=== PATIENT | male | born 1945 | race Caucasian/White ===

== ENCOUNTER 2018-01-19 08:55 | Day surgery (SDC) | payer OTHER ==
[2018-01-11 12:30] VITALS: BMI 33.5
--- NOTE | 2018-01-19 07:58 | HP ---
Satellite [facility] - Chief Complaint Chief Complaint: left knee pain - Past Medical History Allergies/Adverse Reactions: Allergies Allergy/AdvReac Type Severity Reaction Status Date / Time doxycycline Allergy Intermediate Rash Verified 01/07/18 16:33 NSAIDS (Non-Steroidal AdvReac REPORTS HE Verified 01/07/18 17:03 Anti-Inflamma TAKES ALTACE IS UNABLE TO TAKE TOGETHER NUTS AdvReac PT REPORTS Uncoded 01/07/18 17:03 HE IS UNABLE TO EAT DUE TO DX OF DIVERTICULOSIS SEEDS AdvReac PT REPORTS Uncoded 01/07/18 17:03 HE IS UNABLE TO EAT DUE TO A DX OF DIVERTICULOSIS - Current Medications Current Medications: Home Medications Medication Instructions Recorded Ascorbate Calcium [Vitamin C] 500 mg PO DAILY 07/05/14 Atorvastatin Ca [Lipitor] 10 mg PO HS 07/05/14 Docosahexanoic Acid/Epa [Fish Oil 1 each PO DAILY 07/05/14 Softgel] Metoprolol Succinate [Toprol XL -] 25 mg PO DAILY 07/05/14 Multivitamins [Multivit ([facility] 1 tab PO DAILY 07/05/14 Formulary)] Ramipril 10 mg PO DAILY 07/05/14 Aspirin [Aspirin EC] 81 mg PO DAILY 01/07/18 Metformin HCl [Glucophage] 500 mg PO BID 01/07/18 Satellite Physical Exam - Physical Examination General Appearance: Well Nourished, Well Developed, Alert & Oriented x3 ENT: Clear Lung: Normal air movement Heart: Regular rate & rhythm Extremities: Other (left knee- + swelling, + ttp medially, decr rom, nvi xrays show grade 4 medial djd) Neurological: Intact, Alert, Oriented Satellite Impression/Plan - Impression/Plan Impression: left knee medial djd Operative Procedure: left medial wendy ukr Date to be Performed: 01/19/18
[~2018-01-19 08:55] MED LIST: CEFAZOLIN 2 GM in DEXTROSE 5%-WATER - 50 ML IVPB ONE; GABAPENTIN 300 MG CAPSULE (FP) PO ONE; ROPIVICAINE 0.2%/MORPH PF/KETOROLAC - 51ML DISP.SYRINGE IA ONE; TRANEXAMIC ACID 1000 MG/10 ML VIAL IVPUSH ONE; oxyCODONE HCL 10 MG SUSTAINED ACTING TABLET PO ONE
[2018-01-19] MEDS ORDERED: MIDAZOLAM HCL 2 MG/2 ML SINGLE DOSE VIAL ONE ×2 (08:56)
[2018-01-19] MEDS ORDERED: PROPOFOL 20 ML ONE ×2 (09:02→11:58)
[2018-01-19] MEDS ORDERED: BUPIVACAINE LIPOSOME/PF (EXPAREL) 266 MG/20 ML VIAL ONE (10:12)
[2018-01-19] MEDS ORDERED: ceFAZolin SODIUM 1 GM VIAL ONE ×2 (10:48→11:26)
[2018-01-19] MEDS ORDERED: THROMBIN (BOVINE) 5,000 UNIT VIAL TP ONE (10:48)
[2018-01-19] MEDS ORDERED: GELATIN, ABSORBABLE 100 EACH SPONGE TP ONE (10:48)
[2018-01-19] MEDS ORDERED: oxyCODONE HCL 5 MG TABLET PO PRN ×2 (11:05)
[2018-01-19] MEDS ORDERED: ONDANSETRON 4 MG/2 ML VIAL IVPUSH PRN ×2 (11:05→13:02)
[2018-01-19] MEDS ORDERED: ACETAMINOPHEN 325 MG TABLET (FP) PO SCH (11:15)
[2018-01-19] MEDS ORDERED: LACTATED RINGERS SOLUTION 1,000 ML IV SCH ×2 (11:15→13:15)
[2018-01-19] MEDS ORDERED: MAG HYDROX/AL HYDROX/SIMETH 30 ML UNIT-DOSE CUP PO PRN (13:02)
--- NOTE | 2018-01-19 13:04 | OP ---
Operative Note - Note: Operative Date: 01/19/18 (marty) Pre-Operative Diagnosis: left knee medial djd Operation: left medial wendy ukr Post-Operative Diagnosis: Same as Pre-op Surgeon: Héctor Hair Carton Counter Feeder: Amado Bowen Anesthesiologist/LUMP MACHINE OPERATOR: Roberth Jackson Anesthesia: Spinal, Local Specimens Removed: bone fragments Estimated Blood Loss (mls): 100 Operative Report Dictated: Yes
[2018-01-19] MEDS ORDERED: INSULIN (NOVOLOG) ASPART 100 UNITS/ML 10ML VIAL ONE ×2 (17:13→21:54)
[2018-01-19] MEDS: metFORMIN HCL 500 MG TABLET (FP) PO SCH (17:22)
[2018-01-19] MEDS: INSULIN SLIDING SCALE (NOVOLOG) 1 VIAL SQ SCH ×2 (17:22→22:00)
[2018-01-19] MEDS: ACETAMINOPHEN 325 MG TABLET (FP) PO SCH ×2 (19:59→20:01)
[2018-01-19] MEDS: CEFAZOLIN 2 GM/D5W 2 GM/50 ML ML IVPB SCH (19:59)
--- NOTE | 2018-01-19 20:07 | SPEC ---
DATE OF OPERATION: 01/19/2018 PREOPERATIVE DIAGNOSIS: Degenerative joint disease, left knee. POSTOPERATIVE DIAGNOSIS: Degenerative joint disease, left knee. PROCEDURE: Left medial unicompartmental knee replacement with robotic-assisted navigation (MAKOplasty) and patelloplasty. SURGICAL ATTENDING: Héctor Hair MD MOTOR TRANSPORT INSPECTOR: SUZANNE Watkins ANESTHESIA: Regional and spinal. CLOSURE: Medial BRAEDEN components with a 3 femur, 3 tibia, and an 8-mm polyethylene; No. 1 Vicryl, fascia; 0 and 2-0 for subcutaneous; 3-0 Monocryl subcuticular with skin glue; 4-0 undyed Vicryl for pin sites. ESTIMATED BLOOD LOSS: Negligible. TOURNIQUET TIME: Approximately 25 minutes. COMPLICATIONS: None. CONDITION: To recovery in stable condition. DESCRIPTION OF OPERATIVE PROCEDURE: Patient was taken to the operating room on January 19, 2018. Spinal and regional anesthesia was administered by the anesthesiologist. IV Kefzol and TXA were administered prophylactically prior to the case. A well-padded pneumatic tourniquet was placed on the left proximal thigh. The left lower extremity was prepped and draped in the usual sterile fashion. A 6- to 8-cm longitudinal incision over the medial side of the patella from mid patella to the tibial tubercle was incised and was deepened using Bovie cautery. An arthrotomy was then made just medial to the patellar tendon and the patella. Subperiosteal dissection was done on the anteromedial proximal tibia all the way back to the MCL. Partial fat pad excision was performed, exposing the medial compartment. Checkpoint was malleable at both the femur and the tibia. Using 2 stab incisions in the femur 1 handbreadth above the patella on the femur and 2 stab incisions 1 handbreadth below the tibial tubercle on the tibia, 2 threaded pins were drilled in parallel fashion from anterior to posterior, going through the proximal cortex and engaging the 2nd but not through the 2nd cortex. To these threaded pins were fastened navigation rays, 1 on the femur and 1 on the tibia. The knee was then registered with the navigation device with the center of the rotation of the hip, medial and lateral malleoli, and multiple points both on the femur and on the tibia. Excellent registration of less than 0.5 mm was obtained on both to ensure adequate registration. The navigation device ensured us to "pop the bubbles" both on the femur and the tibia and that was performed and passed registration. The knee was then thoroughly inspected to remove all osteophytes both on the femur and the tibia. Also, osteophytes on the trochlea and on the surface of the patella were removed as well. The knee was then stressed with valgus stress at 0, 30, 60, 90, and 120 degrees of flexion. This propagated a looseness/tightness graft. The virtual positions of the components were then optimized to ensure an excellent graft. The tracking also was optimized by manipulating the virtual position to ensure that the femoral component articulated with the central portion of the tibial component. The robot was then brought into the field and was registered. The robot was used to bur the bone on both the femur and the tibia as to the specifications of the components. The trial components were then applied on both the femur and the tibia with an appropriate polyethylene insert. The knee was taken through a range of motion and found to have full extension, full flexion, with excellent stability. Stressing the graft revealed an excellent looseness/tightness graft with the trial components in place. The trial components were removed. The knee was thoroughly irrigated with a copious amount of antibiotic irrigation. The real components were then cemented in using modern generation cement techniques with antibiotic cement and pressurization. After the cement was hardened, the knee was thoroughly inspected to remove out all excess cement. The real polyethylene insert was then clipped into place. Range of motion and stability were again assessed to be as they were with the trials. At this time, the pins and the checkpoints were removed. The knee was again thoroughly irrigated. The arthrotomy was closed with No. 1 Vicryl, 0 and 2-0 subcutaneous, and 3-0 Monocryl subcuticular with skin glue for the skin, 4-0 undyed Vicryl for the pin sites. Sterile pressure dressing was placed over the knee. Patient awakened from anesthesia and transferred to recovery in stable condition. No complications. Estimated blood loss negligible. X-rays postoperatively revealed excellent position of the components. Landy [id number]
[2018-01-19] MEDS: SENNOSIDES/DOCUSATE COMBO (SENNA PLUS) TABLET (UD) PO SCH (21:59)
[2018-01-19] MEDS: oxyCODONE HCL 10 MG SUSTAINED ACTING TABLET PO SCH (21:59)
[2018-01-19] MEDS ORDERED: ATORVASTATIN CA 10 MG TABLET (FP) PO SCH (22:00)
[2018-01-20] MEDS: ACETAMINOPHEN 325 MG TABLET (FP) PO SCH ×2 (01:47→01:49)
[2018-01-20] MEDS: CEFAZOLIN 2 GM/D5W 2 GM/50 ML ML IVPB SCH (03:40)
[2018-01-20] MEDS: metFORMIN HCL 500 MG TABLET (FP) PO SCH ×2 (06:37→10:01)
[2018-01-20] MEDS ORDERED: ASPIRIN 325 MG TABLET PO SCH (08:00)
[2018-01-20] MEDS ORDERED: PATIENT'S OWN MEDICATION (NON-FORMULARY) (Ramipril [Ramipril] 10 MG) PO SCH (10:00)
[2018-01-20] MEDS ORDERED: PANTOPRAZOLE 40 MG TABLET (FP) PO SCH (10:00)
[2018-01-20] MEDS: oxyCODONE HCL 10 MG SUSTAINED ACTING TABLET PO SCH (10:00)
[2018-01-20] MEDS ORDERED: metoPROLOL SUCCINATE 25 MG TAB.SR.24H (FP) PO SCH (10:00)
[2018-01-20] MEDS ORDERED: MULTIVITAMINS (DAILY MVI) TABLET (FP) PO SCH ×2 (10:00)
[2018-01-20] MEDS ORDERED: RAMIPRIL 5 MG CAPSULE (FP) PO SCH (10:00)
[2018-01-20] MEDS: SENNOSIDES/DOCUSATE COMBO (SENNA PLUS) TABLET (UD) PO SCH (10:01)
--- NOTE | 2018-01-20 10:24 | PN ---
Progress Note (short form) - Note Progress Note: Ortho Pt seen and examined s/p left medial wendy ukr pod #1 Selected Entries 01/20/18 06:00 Temperature 98.9 F Pulse Rate 80 Respiratory 20 Rate Blood Pressure 142/72 dressing c/d/i, calf soft, nt rom 0-70, nvi a/p PT dvt ppx pain control d/c home today f/u in 1 week
--- NOTE | 2018-01-20 10:25 | DS ---
Physical Examination Vital Signs: Vital Signs Temperature 98.9 F 01/20/18 06:00 Pulse Rate 80 01/20/18 06:00 Respiratory Rate 20 01/20/18 06:00 Blood Pressure 142/72 01/20/18 06:00 O2 Sat by Pulse Oximetry (%) 96 01/20/18 07:05 Discharge Summary Reason For Visit: OSTEOARTHRITIS Procedures: Principal: left medial wendy ukr Hospital Course: admitted for elective left medial wendy ukr, uneventful post-op, stable for d/c Condition: Good - Instructions Diet, Activity, Other Instructions: Post-op Instructions-Partial Knee Replacement Call the office for a follow-up appointment in 1 week - [phone] Aspirin 325mg daily for 6 weeks. Pain medication was sent into your pharmacy. Apply Graduated Compression Stockings (TEDs) to both lower extremities- remove daily for hygiene ONLY Apply Sequential Compression Device (SCDs) to both Lower extremities remove for PT and hygiene ONLY Apply cold packs to affected area for 15 minutes every 2 hours. Physical Therapist will come to your home for the first 5 days. You will be set up with outpatient PT at your first post-operative visit. Patient may ambulate as tolerated-encourage self care (at least every 2-3 hours while awake) with walker or cane Maintain Aquacel (waterproof) dressing to operative wound (will be removed by surgeon at first office visit) Shower with Aquacel dressing in place-if Aquacel integrity compromised, remove and apply dry sterile dressing and notify Orthopedist. DO NOT SHOWER unless Orthopedists approves without Aquacel dressing CONTACT THE OFFICE FOR ANY CHANGE IN YOUR CONDITION (for example-fever greater than 102 degrees, excessive bleeding from operative site, purulent drainage, severe swelling or pain) GO TO THE EMERGENCY ROOM IF THERE IS A MEDICAL EMERGENCY Knee Precautions: * Keep a rolled towel under affected heel while in bed or chair (to keep knee in extension) * Keep affected leg elevated except during mealtimes * DO NOT PLACE PILLOW UNDER AFFECTED KNEE * If you have any questions, please do not hesitate to call the office - . Referrals: Héctor Hair MD [Staff Physician] - Disposition: VNS/HOME HEALTH CARE - Home Medications Comprehensive Discharge Medication List: Ambulatory Orders Ascorbate Calcium [Vitamin C] 500 mg PO DAILY 07/05/14 Atorvastatin Ca [Lipitor] 10 mg PO HS 07/05/14 Docosahexanoic Acid/Epa [Fish Oil Softgel] 1 each PO DAILY 07/05/14 Metoprolol Succinate [Toprol XL -] 25 mg PO DAILY 07/05/14 Multivitamins [Multivit ([facility] Formulary)] 1 tab PO DAILY 07/05/14 Ramipril 10 mg PO DAILY 07/05/14 Metformin HCl [Glucophage] 500 mg PO BID 01/07/18 Aspirin [ASA -] 325 mg PO DAILY@0800 tablet 01/19/18 Oxycodone HCl/Acetaminophen [Percocet 5-325 mg Tablet -] 1 - 2 tab PO Q6H #50 tab MDD 8 01/19/18
[2018-01-20 11:54] VITALS: BP 138/62; PULSE 75; TEMP 98.6
--- NOTE | 2018-01-20 11:56 | PN ---
Progress Note (short form) - Note Progress Note: ANESTHESIA POSTOP 72 yo male POD#1 L medial knee replacement Patient doing well. Sitting in chair. Tolerating PO. Actively participating in PT VSS, Afebrile Encouraged IS and active participation in PT
== END 2018-01-20 12:42 | disposition home health service (06) ==
LOC: FM/S 08:55 → FASU 08:55
PROVIDERS: ATTEND Orthopaedic Surgery
PROC: 8E0YXBZ Computer Assisted Procedure of Lower Extremity (ICD-10-PCS; 2018-01-19)
PROC: 8E0Y0CZ Robotic Assisted Procedure of Lower Extremity, Open Approach (ICD-10-PCS; 2018-01-19)
PROC: 0SRD0L9 Replacement of Left Knee Joint with Medial Unicondylar Synthetic Substitute, Cemented, Open Approach (ICD-10-PCS; principal; 2018-01-19 11:00)
DX: M17.12 Unilateral primary osteoarthritis, left knee (principal)
CPT/HCPCS: 20985; 27446; C1776; S2900; 73560-TC-LT-FY; 82962; 94760; 97116-GP; 97162-GP

== ENCOUNTER 2021-08-30 04:26 | Day surgery (SDC) | payer OTHER ==
[2021-08-28 13:10] VITALS: BMI 30.8
[~2021-08-30 04:26] MED LIST changes: -CEFAZOLIN 2 GM in DEXTROSE 5%-WATER - 50 ML IVPB ONE; +DEXAMETHASONE SOD PHOSPHATE 10 MG/1 ML VIAL IVPUSH ONE; -GABAPENTIN 300 MG CAPSULE (FP) PO ONE; +IOHEXOL 180 MG/1 ML ML IJ ONE; +LIDOCAINE HCL 1% PRESERVATIVE FREE - 30ML VIAL IJ ONE; -ROPIVICAINE 0.2%/MORPH PF/KETOROLAC - 51ML DISP.SYRINGE IA ONE; -TRANEXAMIC ACID 1000 MG/10 ML VIAL IVPUSH ONE; -oxyCODONE HCL 10 MG SUSTAINED ACTING TABLET PO ONE
[2021-08-30] MEDS ORDERED: BUPIVACAINE HCL/PF 0.75% 10 ML VIAL ONE (07:46)
[2021-08-30] MEDS ORDERED: LIDOCAINE HCL/PF 1% SDV 5ML VIAL ONE (07:47)
[2021-08-30] MEDS ORDERED: LIDOCAINE HCL 1% PRESERVATIVE FREE - 30ML VIAL IJ ONE (14:07)
[2021-08-30] MEDS ORDERED: IOHEXOL 180 MG/1 ML ML IJ ONE (14:08)
[2021-08-30] MEDS ORDERED: DEXAMETHASONE SOD PHOSPHATE 10 MG/1 ML VIAL IVPUSH ONE (14:15)
[2021-08-30 15:50] VITALS: BP 132/75; PULSE 65; TEMP 98.9
== END 2021-08-30 15:14 | disposition home or self-care (01) ==
LOC: JASU-SURG 04:26
PROVIDERS: ATTEND Pain Medicine Pain Medicine
PROC: 3E0R33Z Introduction of Anti-inflammatory into Spinal Canal, Percutaneous Approach (ICD-10-PCS; 2021-08-30)
PROC: 3E0R3BZ Introduction of Anesthetic Agent into Spinal Canal, Percutaneous Approach (ICD-10-PCS; principal; 2021-08-30 15:00)
DX: M47.816 Spondylosis without myelopathy or radiculopathy, lumbar region (principal)
CPT/HCPCS: 76000-TC-FY; J1100

== ENCOUNTER 2022-01-03 04:25 | Day surgery (SDC) | payer OTHER ==
[2022-01-02 15:24] VITALS: BMI 30.7
[~2022-01-03 04:25] MED LIST changes: +BUPIVACAINE HCL/PF 0.75% 10 ML VIAL NR ONE; -DEXAMETHASONE SOD PHOSPHATE 10 MG/1 ML VIAL IVPUSH ONE; -IOHEXOL 180 MG/1 ML ML IJ ONE
[2022-01-03] MEDS ORDERED: BUPIVACAINE HCL/PF 0.75% 10 ML VIAL ONE (07:43)
[2022-01-03] MEDS ORDERED: LIDOCAINE HCL/PF 1% SDV 5ML VIAL ONE (07:43)
[2022-01-03 08:40] VITALS: RESP 18
[2022-01-03] MEDS ORDERED: LIDOCAINE HCL 1% PRESERVATIVE FREE - 30ML VIAL IJ ONE (11:11)
[2022-01-03] MEDS ORDERED: BUPIVACAINE HCL/PF 0.75% 10 ML VIAL NR ONE (11:11)
[2022-01-03 12:09] VITALS: BP 126/57; PULSE 61; TEMP 97.3
== END 2022-01-03 12:09 | disposition home or self-care (01) ==
LOC: JASU-SURG 04:25
PROVIDERS: ATTEND Pain Medicine Pain Medicine
PROC: BR16YZZ Fluoroscopy of Lumbar Facet Joint(s) using Other Contrast (ICD-10-PCS; 2022-01-03)
PROC: 3E0T3BZ Introduction of Anesthetic Agent into Peripheral Nerves and Plexi, Percutaneous Approach (ICD-10-PCS; principal; 2022-01-03 10:30)
DX: M47.816 Spondylosis without myelopathy or radiculopathy, lumbar region (principal)
CPT/HCPCS: 76000-TC-FY

== ENCOUNTER 2024-02-04 05:01 | Day surgery (SDC) | payer OTHER ==
[2024-02-02 10:48] VITALS: BMI 30.7
[2024-02-04] MEDS: LIDOCAINE HCL 1% PRESERVATIVE FREE - 30ML VIAL IJ ONE (15:12)
[2024-02-04] MEDS: IOHEXOL 180 MG/1 ML ML IJ ONE (15:15)
[2024-02-04] MEDS: TRIAMCINOLONE ACET 40MG/1ML VIAL IJ ONE ×2 (15:20)
[2024-02-04] MEDS: BUPIVACAINE HCL/PF 0.5% (5MG/ML) 10 ML VIAL IJ ONE ×2 (15:20)
[2024-02-04 16:46] VITALS: BP 134/74; PULSE 58; RESP 18; TEMP 98.6
== END 2024-02-04 15:55 | disposition home or self-care (01) ==
LOC: JASU-SURG 05:01
PROVIDERS: ATTEND Pain Medicine Pain Medicine
PROC: 3E0U3BZ Introduction of Anesthetic Agent into Joints, Percutaneous Approach (ICD-10-PCS; 2024-02-04)
PROC: 3E0U33Z Introduction of Anti-inflammatory into Joints, Percutaneous Approach (ICD-10-PCS; principal; 2024-02-04 15:00)
DX: M53.3 Sacrococcygeal disorders, not elsewhere classified (principal)
CPT/HCPCS: 76000-TC-FY

== ENCOUNTER 2025-01-27 06:21 | Day surgery (SDC) | payer OTHER ==
[2025-01-25 14:13] VITALS: BMI 30.2
[2025-01-27] MEDS ORDERED: ACETAMINOPHEN 500 MG TABLET (FP) PO PRN (08:54)
[2025-01-27 10:42] VITALS: BP 125/68; PULSE 78; RESP 20; TEMP 97.3
== END 2025-01-27 10:33 | disposition home or self-care (01) ==
LOC: JASU-SURG 06:21
PROVIDERS: ATTEND Pain Medicine Pain Medicine
PROC: 3E0U3BZ Introduction of Anesthetic Agent into Joints, Percutaneous Approach (ICD-10-PCS; 2025-01-27)
PROC: 3E0U33Z Introduction of Anti-inflammatory into Joints, Percutaneous Approach (ICD-10-PCS; principal; 2025-01-27 09:58)
DX: M53.3 Sacrococcygeal disorders, not elsewhere classified (principal)
CPT/HCPCS: 76000-TC-FY